=== PATIENT | male | born 1950 | race Caucasian/White ===

== ENCOUNTER → 2016-03-06 | Outpatient (CLI) | payer MEDICARE ==
[2015-08-30 13:30] VITALS: BP 135/73
[~2016-03-06] MED LIST: ASPI81TA2 PO; CRESTOR20 MG PO; FENO48TA16 PO; FURO40TA4 PO; GLIM2TAB2 PO; IBUP200T77 PO; LISI10TA2 PO; METF10002 PO
--- NOTE | 2016-03-06 14:45 | KCIC ---
PROCEDURE Two view chest radiograph. HISTORY Bronchitis. Cough. Mild chest pain. TECHNIQUE Two-view chest radiograph was obtained. COMPARISON April 27, 2015. FINDINGS Left basilar opacity is similar to prior study, may represent some scarring or atelectasis. No definite airspace disease is apparent. There is no pleural effusion. The heart is not enlarged and there is no heart failure. Median sternotomy wires are noted. IMPRESSION Minimal left basilar opacity is similar to prior, may represent scarring or atelectasis. Electronically signed by: Virgilio Snyder MD (Mar 06, 2016 14:44:23)
== END | disposition home or self-care (01) ==
LOC: KCIC 14:23
PROVIDERS: ATTEND Nurse Practitioner Family
DX: J40 Bronchitis, not specified as acute or chronic (principal); R07.9 Chest pain, unspecified; R05 Cough
CPT/HCPCS: 71020

== ENCOUNTER → 2017-03-23 | Outpatient (CLI) | payer MEDICARE | END | disposition home or self-care (01) | LOC: KCIC US 09:15 | DX: K76.0 Fatty (change of) liver, not elsewhere classified (principal); R16.1 Splenomegaly, not elsewhere classified | CPT/HCPCS: 76700 ==

== ENCOUNTER → 2017-10-02 | Outpatient (CLI) | payer MEDICARE ==
[2015-08-30 13:30] VITALS: BP 135/73
[~2017-10-02] MED LIST changes: +ASPI-630 PO; -ASPI81TA2 PO; -METF10002 PO; +METF10003 PO
--- NOTE | 2017-10-02 15:47 | KCIC ---
EXAM: CT Abdomen without IV contrast CLINICAL HISTORY: Fatty liver renal cysts, follow-up. COMPARISON: Ultrasound 03/23/2017 TECHNIQUE: Helical CT of the abdomen without intravenous contrast. Axial, coronal and sagittal reformatted images were generated. PQRS compliance statement - One or more of the following individualized dose reduction techniques were utilized for this study: 1. Automated exposure control 2. Adjustment of the mA and/or kV according to patient size 3. Use of iterative reconstruction technique FINDINGS: Lack of intravenous contrast limits evaluation of solid organs, vasculature, and lymph nodes. Lower chest: Coronary artery calcifications are seen. Abdomen and Pelvis: Diffuse hepatic steatosis. The liver is not enlarged measuring 16.8 cm in length. Spleen is unremarkable. Gallbladder is partially decompressed. No biliary ductal dilatation. Pancreas and adrenal glands are unremarkable. There is thinning of the superior pole of the right kidney likely from prior renal cortical scarring. Punctate calcification in the right upper pole likely nonobstructing renal calculus. No left renal calculi. No hydronephrosis. Small exophytic lesion measures 1.1 cm of inferior pole the left kidney, likely corresponding to the cyst seen on prior CT, only partially profiled. Trace fat-containing periumbilical hernia. The peritoneal cavity is is not entirely included in the [id number]-ca-[id number]. No abdominal ascites. No abdominal lymphadenopathy. Bones: Visualized osseous structures are unremarkable. IMPRESSION: 1. Diffuse hepatic hypodensity - hepatic steatosis. 2. Small exophytic left lower pole cystic lesion is seen, not well delineated on today's exam. Electronically signed by: Jose F Tran MD (10/02/2017 3:44 PM) [id number]
== END | disposition home or self-care (01) ==
LOC: KCIC CT 13:03
PROVIDERS: ATTEND Family Medicine
DX: N28.1 Cyst of kidney, acquired (principal); K76.0 Fatty (change of) liver, not elsewhere classified; I25.10 Atherosclerotic heart disease of native coronary artery without angina pectoris; Z95.1 Presence of aortocoronary bypass graft
CPT/HCPCS: 74150

== ENCOUNTER → 2019-07-20 | Outpatient (CLI) | payer MEDICARE ==
[2015-08-30 13:30] VITALS: BP 135/73
[~2019-07-20] MED LIST changes: -GLIM2TAB2 PO; +GLIM2TAB7 PO; -METF10003 PO; +METF10007 PO
--- NOTE | 2019-07-20 13:32 | CARD ---
MR#: [id number] Date of Study: 07/20/2019 Ordering Physician: FERDINAND HAMMER, Referring Physician: FERDINAND HAMMER, Tech: Kadie Zhao [facility] APPROVED REPORT EXAM: Two-dimensional and M-mode echocardiogram with Doppler and color Doppler. Other Information Quality : Fair INDICATION Cardiac Disease: CAD Hx: CABG 2D DIMENSIONS RVDd2.7 (2.9-3.5cm)Left Atrium(2D)3.8 (1.6-4.0cm) IVSd0.8 (0.7-1.1cm)Aortic Root(2D)3.2 (2.0-3.7cm) LVDd4.6 (3.9-5.9cm)LVOT Diameter2.3 (1.8-2.4cm) PWd0.9 (0.7-1.1cm)LVDs2.9 (2.5-4.0cm) FS (%) 37.2 %SV67.1 ml Aortic Valve AoV Peak Shahriar.123.9cm/sAoV VTI24.0cm AO Peak GR.6.1mmHgLVOT Peak Shahriar.122.5cm/s LVOT VTI 25.91cmAO Mean GR.3mmHg ADDI (VMAX)4.18jq4EOV (VTI)4.65cm2 Mitral Valve MV E Bsuqztnd56.8cm/sMV DECEL DSON049rc MV A Zwbqxqax15.2cm/sMV YRT19ja E/A Ratio1.2MVA (PHT)3.81cm2 Tricuspid Valve TR P. Dbixevje879kk/sRAP MNHQGZDA4wiTj TR Peak Gr.71oqIxOIMC80raHs LEFT VENTRICLE The left ventricle is normal size. There is normal left ventricular wall thickness. The left ventricu lar systolic function is normal and the ejection fraction is within normal range. The Ejection Fracti on is 55-60%. Septal motion consistent with conduction abnormality. The left ventricular diastolic fu nction and filling is normal for age. RIGHT VENTRICLE The right ventricle is normal size. The right ventricular systolic function is normal. ATRIA The left atrium size is normal. The right atrium size is normal. The interatrial septum is intact wit h no evidence for an atrial septal defect or patent foramen ovale as noted on 2-D or Doppler imaging. AORTIC VALVE The aortic valve is calcified but opens well. Doppler and Color Flow revealed no significant aortic r egurgitation. There is no significant aortic valvular stenosis. MITRAL VALVE The mitral valve is calcified but opens well. There is no evidence of mitral valve prolapse. There is no mitral valve stenosis. Doppler and Color-flow revealed trace to mild mitral regurgitation. TRICUSPID VALVE The tricuspid valve is normal in structure and function. Doppler and Color Flow revealed trace tricus pid regurgitation. The PA pressure was estimated at 29 mmHg. There is no tricuspid valve stenosis. PULMONIC VALVE The pulmonic valve is not well visualized. Doppler and Color Flow revealed mild pulmonic valvular reg urgitation. There is no pulmonic valvular stenosis. GREAT VESSELS The aortic root is normal in size. The ascending aorta is mildly dilated at 3.8 cm. The IVC was not v isualized. PERICARDIAL EFFUSION There is no evidence of significant pericardial effusion. Critical Notification Critical Value: No <Conclusion> The left ventricle is normal size. The left ventricular systolic function is normal and the ejection fraction is within normal range. The Ejection Fraction is 55-60%. Doppler and Color Flow revealed no significant aortic regurgitation. There is no significant aortic valvular stenosis. Doppler and Color-flow revealed trace to mild mitral regurgitation. Doppler and Color Flow revealed trace tricuspid regurgitation. The PA pressure was estimated at 29 mmHg. The ascending aorta is mildly dilated at 3.8 cm. Signed by : Reji Merritt MD Electronically Approved : 07/20/2019 13:32:04
== END | disposition home or self-care (01) ==
LOC: ECHO 10:30
PROVIDERS: ATTEND Internal Medicine Cardiovascular Disease
DX: I08.8 Other rheumatic multiple valve diseases (principal); I25.10 Atherosclerotic heart disease of native coronary artery without angina pectoris
CPT/HCPCS: 93306

== ENCOUNTER → 2019-08-09 | Outpatient (CLI) | payer MEDICARE ==
[2015-08-30 13:30] VITALS: BP 135/73
--- NOTE | 2019-08-09 14:57 | KCIC ---
PA CHEST AND LEFT RIB SERIES Clinical Indication: RIGHT POSTERIOR CHEST WALL PAIN / Spl. Instructions: Pain 3-4 months, pain under scapula. / History: Comparison: Two-view chest March 06, 2016. Findings: CABG changes. The cardiac size is normal. Pulmonary vasculature is normal. Minimal scarring in the left lung base. The lungs are otherwise clear. No pleural effusion or pneumothorax is seen. There is no acute displaced rib fracture. A nondisplaced or subtle rib fracture could be obscured. IMPRESSION: 1. No acute cardiopulmonary process. 2. No acute displaced rib fracture. Electronically signed by: Stevan Montgomery MD (08/09/2019 2:54 PM) [id number]
== END | disposition home or self-care (01) ==
LOC: KCIC 08:24
PROVIDERS: ATTEND Family Medicine
DX: R07.89 Other chest pain (principal)
CPT/HCPCS: 71101

== ENCOUNTER 2020-03-16 20:43 | Inpatient (IN) | payer MEDICARE ==
[~2020-03-16] VITALS: Ht 172.7 cm; Wt 118.2 kg
[~2020-03-16 20:43] MED LIST changes: -ACET-1797 PO; -AMLO-187 PO; -FENO54TA PO; -GLIP10TA13 PO; -INSU100I13 SQ; -SIME80TA14 PO
--- NOTE | 2020-03-16 21:01 | PHYS DOC ---
General Adult EDM: Chief Complaint: OTHER COMPLAINTS HPI: HPI: Patient is a 69 year old male who presents with nasal congestion, headache, fatigue, sore throat, nausea, remittent shortness of breath, vomiting and abdominal epigastric pain for the last 5 days. Patient rates his sharp abdominal pain at an 8 out of 10. Patient had a CT abdomen pelvis done today that showed groundglass opacities in lower lobes of lungs, and gas-filled stomach but otherwise unremarkable. Patient states that he will belch often and then feel better. He states it is as if his stomach blows up and gets hard and bloated and then he belches and feels better. Patient has a history of diabetes and hypertension. Patient denies chest pain, dizziness, syncope, diarrhea, focal weakness, numbness or tingling, vision changes. Review of Systems: Review of Systems: Constitutional: Denies fever or chills. [] Eyes: Denies change in visual acuity. [] HENT: + nasal congestion or +sore throat. [] Respiratory: Denies cough. + shortness of breath. [] Cardiovascular: Denies chest pain or edema. [] GI: + abdominal pain, +nausea, +vomiting, denies bloody stools or diarrhea. [] : Denies dysuria. [] Musculoskeletal: Denies back pain or joint pain. [] Integument: Denies rash. [] Neurologic: + headache, denies focal weakness or sensory changes. [] Endocrine: Denies polyuria or polydipsia. [] Lymphatic: Denies swollen glands. [] Psychiatric: Denies depression or anxiety. [] Heart Score: HEART Score for Chest Pain: HEART Score for Chest Pain Response (Comments) Value History Slighlty/Non-Suspicious 0 ECG Normal 0 Age > 65 2 Risk Factors 1 or 2 Risk Factors 1 Troponin < Normal Limit 0 Total 3 Risk Factors: Risk Factors: DM, Current or recent (<one month) smoker, HTN, HLP, family history of CAD, obesity. Risk Scores: Score 0 - 3: 2.5% MACE over next 6 weeks - Discharge Home Score 4 - 6: 20.3% MACE over next 6 weeks - Admit for Clinical Observation Score 7 - 10: 72.7% MACE over next 6 weeks - Early Invasive Strategies Allergies: Allergies: Allergies Coded Allergies Type Severity Reaction Last Updated Verified No Known Drug Allergies 08/30/15 No Physical Exam: PE: Constitutional: Well developed, well nourished, no acute distress, non-toxic appearance. [] HENT: Normocephalic, atraumatic, bilateral external ears normal, oropharynx moist, no oral exudates, nose normal. [] Eyes: PERRLA, EOMI, conjunctiva normal, no discharge. [] Neck: Normal range of motion, no tenderness, supple, no stridor. [] Cardiovascular:Heart rate regular rhythm, no murmur [] Lungs & Thorax: Bilateral breath sounds clear to auscultation [] Abdomen: Bowel sounds normal, soft, epigastric tenderness, no masses, no pulsatile masses. [] Skin: Warm, dry, no erythema, no rash. [] Back: No tenderness, no CVA tenderness. [] Extremities: No tenderness, no cyanosis, no clubbing, ROM intact, no edema. [] Neurologic: Alert and oriented X 3, normal motor function, normal sensory function, no focal deficits noted. [] Psychologic: Affect normal, judgement normal, mood normal. [] EKG: EK and read by Dr Kincaid as Sinus Rhythm and no STEMI Radiology/Procedures: Radiology/Procedures: [] Impression: [facility] [address] [place], [place] [id number] IMAGING REPORT Signed PATIENT: ERVIN GALE ACCOUNT: [id number] : 1950 LOCATION: US AGE: 69 SEX: M EXAM STATUS: REG CLI ORD. PHYSICIAN: AXEL PARKS MD REASON: SEVERE ABD. PAIN, PLEASE CALL RESULTS TO DR. PARKS [phone] PROCEDURE: CT ABDOMEN PELVIS WO CONTRAST EXAM: CT Abdomen and Pelvis without IV contrast INDICATION: Reason: SEVERE ABD. PAIN, PLEASE CALL RESULTS TO DR. PARKS [phone] / [facility]. Instructions: / History: TECHNIQUE: Multi-detector row CT images were acquired from the lung bases through the abdomen and pelvis without the use of IV contrast. Sagittal and coronal images were acquired from the transaxial data. All CT scans performed at this facility utilize dose optimization techniques as appropriate to the exam, including the following: Automated exposure control and adjustment of the mA and/or KV according to patient size (this includes techniques or standardized protocols for targeted exams where dose is indication/reason for exam). ORAL CONTRAST: None COMPARISON: 10/02/[address] FINDINGS: The absence of IV contrast limits evaluation of soft tissue pathology. LOWER CHEST: Prior CABG. Patchy peripheral groundglass densities are nonspecific and could reflect the sequelae of current or previous atypical infection. LIVER: Unremarkable BILIARY SYSTEM: Gallbladder is unremarkable. Bile ducts are not dilated. PANCREAS: Unremarkable SPLEEN: Unremarkable ADRENALS: Unremarkable KIDNEYS & URETERS: Similar volume loss in the right kidney, a nonobstructing right nephrolithiasis. Left kidney shows similar small exophytic lesions with mild perirenal soft tissue stranding that is nonspecific, possible sequelae of chronic kidney disease. No hydronephrosis or ureteral stones. BLADDER: Unremarkable REPRODUCTIVE ORGANS: Postoperative changes from previous prostatectomy. GASTROINTESTINAL: The stomach is distended with gas but otherwise unremarkable. The small bowel, and colon are unremarkable. The appendix is normal. MESENTERY/PERITONEUM/RETROPERITONEUM: Surgical clips in the bilateral pelvic sidewalls are compatible with previous deepak dissection. No fluid collection, mass or adenopathy. No free air. No ascites. VASCULAR: Scattered aortic calcifications but no evidence of an aneurysm. LYMPH NODES: No adenopathy OSSEOUS & SOFT TISSUES: Unremarkable IMPRESSION: 1. No acute pathology in the abdomen or pelvis status post previous prostatectomy and bilateral pelvic deepak dissection. 2. Nonspecific patchy lower lobe peripheral groundglass opacities at could reflect sequelae of atypical infection. Abdominal findings discussed with Dr. Axel Parks by telephone at 5:12 PM on 03/16/2020 Electronically signed by: Meli Cortes MD (03/16/2020 5:21 PM) [id number] DICTATED and SIGNED BY: MELI CORTES MD DATE: 03/16/20 [id number] [facility] [address] [place], [place] [id number] IMAGING REPORT Signed PATIENT: ERVIN GALE ACCOUNT: [id number] : 1950 LOCATION: ER AGE: 69 SEX: M EXAM STATUS: REG ER ORD. PHYSICIAN: ALEKSANDAR CARRIZALES APRN REASON: SOA PROCEDURE: PORTABLE CHEST 1V INDICATION: Reason: SOA / Spl. Instructions: / History: COMPARISON: July 2019 FINDINGS: Single view of chest obtained. Poststernotomy changes. Minimal interstitial prominence similar to prior. No definite new region of airspace consolidation. IMPRESSION: * Similar exam compared to prior without a definite new region of focal airspace consolidation. Electronically signed by: Riley Ocasio MD (03/16/2020 9:50 PM) [id number] DICTATED and SIGNED BY: RILEY OCASIO MD DATE: 03/16/20 [id number] Course & Med Decision Making: Course & Med Decision Making Pertinent Labs and Imaging studies reviewed. (See chart for details) COVID-19 CRITERIA: The patient was evaluated during the global COVID-19 pandemic, and that diagnosis was suspected/considered upon their initial presentation. Their evaluation, treatment and testing was consistent with current guidelines for patients who present with complaints or symptoms that may be related to COVID-19. See HPI. Alert and oriented x4. Speaks in full complete sentences. Skin pink warm and dry. Vital signs are within normal limits. Patient is given simethicone. I have attached the CT from today to the chart. Patient is very uncomfortable. Patient is having abdominal pain and clutching his left abdomen he starts throwing PVCs. Due to patient being so uncomfortable and medications not helping patient will be admitted for intractable abdominal pain and have a GI consultation. Patient is wanting to be admitted due to pain. I have spoken to Dr Kincaid concerning this patient and the care plan. [] Nichole Disclaimer: Nichole Disclaimer: This electronic medical record was generated, in whole or in part, using a voice recognition dictation system. COVID-19 Patient Risks: Age 65 or older: Yes Sign of co-morbidity: Yes Exp to person + for COVID: No Exp to PUI: No Travel from affected area: No Lower respiratory symptoms: Yes Fever: No Other: Yes (HEADACHE, NAUSEA, ABD PAIN) PPE Use: Full PPE with N95 mask or PAPR: Yes Departure Departure Impression: Primary Impression: Intractable abdominal pain Additional Impression: Person under investigation for COVID-19 Disposition: 01 DC HOME SELF CARE/HOMELESS Condition: STABLE Referrals: GENEVA SHEETS MD (PCP) ALEKSANDAR CARRIZALES APRN Mar 16, 2020 21:01
[2020-03-16] MEDS ORDERED: SIMETHICONE 80 MG TAB.CHEW PO PRN (21:15)
--- NOTE | 2020-03-16 21:52 | RAD ---
INDICATION: Reason: SOA / Spl. Instructions: / History: COMPARISON: July 2019 FINDINGS: Single view of chest obtained. Poststernotomy changes. Minimal interstitial prominence similar to prior. No definite new region of a irspace consolidation. IMPRESSION: * Similar exam compared to prior without a definite new region of focal airspace consolidation. Electronically signed by: Riky Ocasio MD (03/16/2020 9:50 PM) [id number]
[2020-03-16] MEDS ORDERED: fentaNYL PF VIAL 100 MCG/2 ML VIAL IVP ONE (22:00)
[2020-03-16 22:29] LABS: BASO # 0.1 x10^3/uL (0.0-0.2); BASO % 1 % (0-3); EOS # 0.4 x10^3/uL (0.0-0.7); EOS % 5 % (0-3); HEMATOCRIT 38.6 % (39.0-53.0); HEMOGLOBIN 13.3 g/dL (13.0-17.5); LYMPH # 2.2 x10^3/uL (1.0-4.8); LYMPH % 29 % (24-48); MEAN CORPUSCULAR HEMOGLOBIN 31 pg (25-35); MEAN CORPUSCULAR HGB CONC 35 g/dL (31-37); MEAN CORPUSCULAR VOLUME 89 fL (79-100); MONO # 0.7 x10^3/uL (0.0-1.1); MONO % 9 % (0-9); NEUT # 4.3 x10^3/uL (1.8-7.7); NEUT % 57 % (31-73); PLATELET COUNT 140 x10^3/uL (140-400); RED BLOOD COUNT 4.35 x10^6/uL (4.30-5.70); RED CELL DISTRIBUTION WIDTH 12.1 % (11.5-14.5); WHITE BLOOD COUNT 7.6 x10^3/uL (4.0-11.0)
[2020-03-16 22:32] LABS: BILIRUBIN,URINE NEGATIVE (NEG); CLARITY,URINE CLEAR; COLOR,URINE YELLOW; NITRITE,URINE NEGATIVE (NEG); PROTEIN,URINE 30 mg/dL (NEG-TRACE)
[2020-03-16 22:39] LABS: BACTERIA,URINE 0 /HPF (0-FEW); RBC,URINE OCC /HPF (0-2); WBC,URINE 0 /HPF (0-4)
[2020-03-16 22:41] LABS: CALCIUM 10.8 mg/dL (8.5-10.1); GFR 33.4; POTASSIUM 4.1 mmol/L (3.5-5.1)
[2020-03-16 22:47] LABS: ALBUMIN 3.7 g/dL (3.4-5.0); TOTAL BILIRUBIN 0.7 mg/dL (0.2-1.0); TOTAL PROTEIN 7.3 g/dL (6.4-8.2)
[2020-03-16] MEDS ORDERED: fentaNYL PF VIAL 100 MCG/2 ML VIAL IV PRN (23:15)
[2020-03-16] MEDS ORDERED: IV NORMAL SALINE 500ML BAG 500 ML IV ONE (23:15)
[2020-03-16] MEDS ORDERED: ONDANSETRON PF 4 MG/2 ML VIAL. IV PRN (23:15)
[2020-03-16] MEDS ORDERED: FAMOTIDINE 20 MG/2 ML VIAL IVP ONE (23:15)
[2020-03-16] MEDS ORDERED: METOCLOPRAMIDE HCL 10 MG/2 ML VIAL. IVP ONE (23:15)
[2020-03-17 01:00] VITALS: BP 164/82
[2020-03-17] MEDS ORDERED: diphenhydrAMINE HCL 25 MG CAPSULE PO PRN (04:30)
[2020-03-17] MEDS ORDERED: ACETAMINOPHEN 500 MG TABLET PO PRN (04:30)
[2020-03-17] MEDS ORDERED: FENO54TA PO (05:09)
[2020-03-17] MEDS ORDERED: INSU100I13 SQ (05:09)
[2020-03-17] MEDS ORDERED: AMLO-187 PO (05:09)
[2020-03-17] MEDS ORDERED: ACET-1797 PO (05:11)
[2020-03-17] MEDS ORDERED: GLIP10TA13 PO (05:11)
[2020-03-17 07:00] VITALS: BP 170/88
[2020-03-17] MEDS ORDERED: SIMETHICONE 80 MG TAB.CHEW PO PRN (08:15)
--- NOTE | 2020-03-17 08:48 | RAD ---
Three-view acute abdominal series. HISTORY: Abdominal distention 3 views were taken for an acute abdominal series. Heart is normal in size with evidence of prior bypa ss. There is minimal density at the left costophrenic angle from atelectasis or scarring. There are n o other infiltrates. There is no definite effusion. Supine and upright views were taken of the abdome n. There is no definite free air on this semiupright portable view which is limited. There is no lawrence l obstruction. There is no significant bowel distention. Supine portable views were also taken of the abdomen. Portable technique and patient size limits evaluation. Patient's had previous surgery in th e pelvis. IMPRESSION: 1. No bowel obstruction or significant bowel distention in the abdomen. 2. Scarring or atelectasis at the left costophrenic angle without other acute infiltrates. Electronically signed by: Robert Muller MD (03/17/2020 8:45 AM) [facility]
[2020-03-17 09:05] LABS: BASO % 1 % (0-3); EOS # 0.3 x10^3/uL (0.0-0.7); EOS % 4 % (0-3); HEMATOCRIT 39.3 % (39.0-53.0); HEMOGLOBIN 13.6 g/dL (13.0-17.5); LYMPH # 1.8 x10^3/uL (1.0-4.8); LYMPH % 26 % (24-48); MEAN CORPUSCULAR HEMOGLOBIN 31 pg (25-35); MEAN CORPUSCULAR HGB CONC 35 g/dL (31-37); MEAN CORPUSCULAR VOLUME 89 fL (79-100); MONO # 0.5 x10^3/uL (0.0-1.1); MONO % 7 % (0-9); NEUT # 4.5 x10^3/uL (1.8-7.7); NEUT % 63 % (31-73); PLATELET COUNT 128 x10^3/uL (140-400); RED BLOOD COUNT 4.41 x10^6/uL (4.30-5.70); RED CELL DISTRIBUTION WIDTH 12.5 % (11.5-14.5); WHITE BLOOD COUNT 7.1 x10^3/uL (4.0-11.0)
--- NOTE | 2020-03-17 09:09 | PDOC1 ---
History and Physical Date of Admission Date of Admission 03/17/2020 Identification/Chief Complaint Chief Complaint My stomach is bloated Source Source: Chart review, Patient History of Present Illness History of Present Illness Patient is a 69-year-old gentleman with past medical history of hypertension diabetes which seems to be poorly controlled who was in his usual state of health until approximately 1 day prior to his admission when he started complaining of abdominal discomfort. This is generalized sharp in nature sensation of bloating that he rates at a 8 out of 10 intensity and the worst moments. Intermittent no dietary transgressions no recent infections and no travels outside this area have been reported. The patient denies any contact with people infected with COVID-19. The patient denies any fever chills no shortness of breath no cough or sputum production no pleurisy. The patient denies nausea vomiting diarrhea. He describes a similar episode years ago and he was diagnosed with irritable bowel syndrome, the patient denies urinary symptoms no CVA tenderness. He was seen in the outpatient setting by his primary care physician imaging studies have been reviewed and there does not seem to be an acute process evident on CAT scan. There is a comment of nonspecific patchy lower lobe peripheral groundglass opacities that could reflect sequela of atypical infection but otherwise no acute pathology in the abdomen or pelvis was reported. Patient denies early satiety, he does not remember the value of his last hemoglobin A1c We were asked to admit the patient for symptoms control and GI consultation. At the time my evaluation the patient does not exhibit acute distress he does seem bloated and describes the pain as when unable to pass gas. He has had bowel movements throughout the day yesterday and last one notes a long ago prior to my interview. He had a colonoscopy approximately 3 years ago with normal findings. No records are available for review of the procedure. Plan of care has been explained in detail and he is hoping to be discharged later in the day so he can watch to game tomorrow. Reassurance has been provided plan of care explained in detail and all of his concerns addressed to the best of my abilities Past Medical History Cardiovascular: HTN, Hyperlipidemia Endocrine: Diabetes Past Surgical History Past Surgical History: No pertinent history Family History Family History: No Significant Social History Smoke: No ALCOHOL: none Drugs: None Current Problem List Problem List Problems Medical Problems: (1) Intractable abdominal pain Status: Acute (2) Person under investigation for COVID-19 Status: Acute Current Medications Current Medications Current Medications Medications (Trade) Dose Ordered Sig/Travis Start Time Stop Time Status Last Admin Dose Admin Acetaminophen (Tylenol) 500 mg PRN Q6HRS PRN 03/17/20 04:30 Diphenhydramine HCl (Benadryl) 50 mg PRN QHS PRN 03/17/20 04:30 Famotidine (Pepcid Vial) 20 mg 1X ONCE 03/16/20 23:15 03/16/20 23:16 DC 03/16/20 23:39 20 MG Fentanyl Citrate (Fentanyl 2ml Vial) 50 mcg PRN Q3HRS PRN 03/16/20 23:15 03/17/20 23:14 03/16/20 23:41 50 MCG Metoclopramide HCl (Reglan Vial) 10 mg 1X ONCE 03/16/20 23:15 03/16/20 23:16 DC 03/16/20 23:40 10 MG Ondansetron HCl (Zofran) 4 mg PRN Q8HRS PRN 03/16/20 23:15 03/17/20 23:14 Simethicone (Gas-X) 80 mg PRN AFTMEALHC PRN 03/17/20 08:15 Sodium Chloride 500 ml @ 500 mls/hr 1X ONCE 03/16/20 23:15 03/17/20 00:14 DC 03/16/20 23:36 500 MLS/HR Allergies Allergies Allergies Coded Allergies Type Severity Reaction Last Updated Verified No Known Drug Allergies 08/30/15 No ROS Review of System CONSTITUTIONAL: No fever or chills EYES: No recent changes SKIN: No rash or itching CARDIOVASCULAR: No chest pain, syncope, palpitations, or edema RESPIRATORY: No SOB or cough GASTROINTESTINAL: No nausea, vomiting or abdominal pain NEUROLOGICAL: No headaches or weakness ENDOCRINE: No cold or heat intolerance GENITOURINARY: No urgency or frequency of urination MUSCULOSKELETAL: No back pain or joint pain LYMPHATICS: No enlarged lymph nodes PSYCHIATRIC: No anxiety or depression Physical Exam Physical Exam GEN.: No apparent distress. Alert and oriented. HEENT: Head is normocephalic, atraumatic NECK: Supple. LUNGS: Clear to auscultation. HEART: RRR, S1, S2 present. Peripheral pulses intact ABDOMEN: Soft, nontender. Positive bowel sounds. EXTREMITIES: Without any cyanosis. NEUROLOGIC: Normal speech, normal tone PSYCHIATRIC: Normal affect, normal mood. SKIN: No ulcerations Vitals Vitals Vital Signs Date Time Temp Pulse Resp B/P (MAP) Pulse Ox O2 Delivery O2 Flow Rate FiO2 03/17/20 07:00 96.8 89 170/88 (115) 97 Room Air 96.8 03/17/20 01:00 20 Labs Labs Laboratory Tests Test 03/16/20 22:10 03/16/20 22:20 03/17/20 07:37 White Blood Count 7.6 x10^3/uL (4.0-11.0) Red Blood Count 4.35 x10^6/uL (4.30-5.70) Hemoglobin 13.3 g/dL (13.0-17.5) Hematocrit 38.6 % (39.0-53.0) Mean Corpuscular Volume 89 fL (79-100) Mean Corpuscular Hemoglobin 31 pg (25-35) Mean Corpuscular Hemoglobin Concent 35 g/dL (31-37) Red Cell Distribution Width 12.1 % (11.5-14.5) Platelet Count 140 x10^3/uL (140-400) Neutrophils (%) (Auto) 57 % (31-73) Lymphocytes (%) (Auto) 29 % (24-48) Monocytes (%) (Auto) 9 % (0-9) Eosinophils (%) (Auto) 5 % (0-3) Basophils (%) (Auto) 1 % (0-3) Neutrophils # (Auto) 4.3 x10^3/uL (1.8-7.7) Lymphocytes # (Auto) 2.2 x10^3/uL (1.0-4.8) Monocytes # (Auto) 0.7 x10^3/uL (0.0-1.1) Eosinophils # (Auto) 0.4 x10^3/uL (0.0-0.7) Basophils # (Auto) 0.1 x10^3/uL (0.0-0.2) Sodium Level 138 mmol/L (136-145) Potassium Level 4.1 mmol/L (3.5-5.1) Chloride Level 102 mmol/L (98-107) Carbon Dioxide Level 27 mmol/L (21-32) Anion Gap 9 (6-14) Blood Urea Nitrogen 29 mg/dL (8-26) Creatinine 2.0 mg/dL (0.7-1.3) Estimated GFR (Cockcroft-Gault) 33.4 BUN/Creatinine Ratio 15 (6-20) Glucose Level 323 mg/dL (70-99) Calcium Level 10.8 mg/dL (8.5-10.1) Total Bilirubin 0.7 mg/dL (0.2-1.0) Aspartate Amino Transf (AST/SGOT) 26 U/L (15-37) Alanine Aminotransferase (ALT/SGPT) 30 U/L (16-63) Alkaline Phosphatase 68 U/L (46-116) Troponin I Quantitative < 0.017 ng/mL (0.000-0.055) Total Protein 7.3 g/dL (6.4-8.2) Albumin 3.7 g/dL (3.4-5.0) Albumin/Globulin Ratio 1.0 (1.0-1.7) Lipase 200 U/L (73-393) Urine Collection Type Void Urine Color Yellow Urine Clarity Clear Urine pH 7.0 (<5.0-8.0) Urine Specific [place] 1.025 (1.000-1.030) Urine Protein 30 mg/dL (NEG-TRACE) Urine Glucose (UA) >=1000 mg/dL (NEG) Urine Ketones (Stick) Negative mg/dL (NEG) Urine Blood Negative (NEG) Urine Nitrite Negative (NEG) Urine Bilirubin Negative (NEG) Urine Urobilinogen Dipstick 1.0 mg/dL (0.2 mg/dL) Urine Leukocyte Esterase Negative (NEG) Urine RBC Occ /HPF (0-2) Urine WBC 0 /HPF (0-4) Urine Squamous Epithelial Cells None /LPF Urine Bacteria 0 /HPF (0-FEW) Glucose (Fingerstick) 237 mg/dL (70-99) Laboratory Tests Test 03/16/20 22:10 03/16/20 22:20 03/17/20 07:37 White Blood Count 7.6 x10^3/uL (4.0-11.0) Red Blood Count 4.35 x10^6/uL (4.30-5.70) Hemoglobin 13.3 g/dL (13.0-17.5) Hematocrit 38.6 % (39.0-53.0) Mean Corpuscular Volume 89 fL (79-100) Mean Corpuscular Hemoglobin 31 pg (25-35) Mean Corpuscular Hemoglobin Concent 35 g/dL (31-37) Red Cell Distribution Width 12.1 % (11.5-14.5) Platelet Count 140 x10^3/uL (140-400) Neutrophils (%) (Auto) 57 % (31-73) Lymphocytes (%) (Auto) 29 % (24-48) Monocytes (%) (Auto) 9 % (0-9) Eosinophils (%) (Auto) 5 % (0-3) Basophils (%) (Auto) 1 % (0-3) Neutrophils # (Auto) 4.3 x10^3/uL (1.8-7.7) Lymphocytes # (Auto) 2.2 x10^3/uL (1.0-4.8) Monocytes # (Auto) 0.7 x10^3/uL (0.0-1.1) Eosinophils # (Auto) 0.4 x10^3/uL (0.0-0.7) Basophils # (Auto) 0.1 x10^3/uL (0.0-0.2) Sodium Level 138 mmol/L (136-145) Potassium Level 4.1 mmol/L (3.5-5.1) Chloride Level 102 mmol/L (98-107) Carbon Dioxide Level 27 mmol/L (21-32) Anion Gap 9 (6-14) Blood Urea Nitrogen 29 mg/dL (8-26) Creatinine 2.0 mg/dL (0.7-1.3) Estimated GFR (Cockcroft-Gault) 33.4 BUN/Creatinine Ratio 15 (6-20) Glucose Level 323 mg/dL (70-99) Calcium Level 10.8 mg/dL (8.5-10.1) Total Bilirubin 0.7 mg/dL (0.2-1.0) Aspartate Amino Transf (AST/SGOT) 26 U/L (15-37) Alanine Aminotransferase (ALT/SGPT) 30 U/L (16-63) Alkaline Phosphatase 68 U/L (46-116) Troponin I Quantitative < 0.017 ng/mL (0.000-0.055) Total Protein 7.3 g/dL (6.4-8.2) Albumin 3.7 g/dL (3.4-5.0) Albumin/Globulin Ratio 1.0 (1.0-1.7) Lipase 200 U/L (73-393) Urine Collection Type Void Urine Color Yellow Urine Clarity Clear Urine pH 7.0 (<5.0-8.0) Urine Specific [place] 1.025 (1.000-1.030) Urine Protein 30 mg/dL (NEG-TRACE) Urine Glucose (UA) >=1000 mg/dL (NEG) Urine Ketones (Stick) Negative mg/dL (NEG) Urine Blood Negative (NEG) Urine Nitrite Negative (NEG) Urine Bilirubin Negative (NEG) Urine Urobilinogen Dipstick 1.0 mg/dL (0.2 mg/dL) Urine Leukocyte Esterase Negative (NEG) Urine RBC Occ /HPF (0-2) Urine WBC 0 /HPF (0-4) Urine Squamous Epithelial Cells None /LPF Urine Bacteria 0 /HPF (0-FEW) Glucose (Fingerstick) 237 mg/dL (70-99) VTE Prophylaxis Ordered VTE Prophylaxis Devices: Yes VTE Pharmacological Prophylaxi: No Assessment/Plan Assessment/Plan Abdominal pain secondary to most likely gas Uncontrolled diabetes mellitus type 2 History of essential hypertension Dyslipidemia Obesity with a BMI of 39 Gastroparesis? Person under investigation for COVID-19 infection Plan We will order abdominal acute series Simethicone GI consultation Hemoglobin A1c Further recommendations based on the clinical course Await for COVID-19 PCR results Reassess in the a.m. DVT prophylaxis with Lovenox Justifications for Admission Other Justification CLOVER BARBOZA MD Mar 17, 2020 09:09
[2020-03-17] MEDS ORDERED: ELECTROLYTE (NON-ICU) PROTOCOL. MC PRN (09:15)
[2020-03-17] MEDS ORDERED: ZOLPIDEM 5 MG TABLET. PO PRN (09:15)
[2020-03-17] MEDS ORDERED: MAGNESIUM HYDROXIDE 2,400 MG/30 ML ORAL.SUSP. PO PRN (09:15)
[2020-03-17] MEDS ORDERED: ONDANSETRON PF 4 MG/2 ML VIAL. IVP PRN (09:15)
[2020-03-17] MEDS ORDERED: BISACODYL 10 MG SUPP.RECT. PR PRN (09:15)
[2020-03-17] MEDS ORDERED: MORPHINE SULFATE 2 MG/ML VIAL. IV PRN (09:15)
[2020-03-17] MEDS ORDERED: LACTULOSE 20 GM/30 ML SOLUTION. PO PRN (09:15)
[2020-03-17] MEDS ORDERED: ACETAMINOPHEN 325 MG TABLET. PO PRN (09:15)
[2020-03-17] MEDS ORDERED: MAG HYDROX/ALUMINUM HYD/SIMETH 30 ML ORAL.SUSP PO PRN (09:15)
[2020-03-17 09:41] LABS: ALBUMIN 3.6 g/dL (3.4-5.0); ALBUMIN/GLOBULIN RATIO 1.1 (1.0-1.7); C-REACTIVE PROTEIN 2.1 mg/L (0-3.3); CALCIUM 10.4 mg/dL (8.5-10.1); CREATININE 1.9 mg/dL (0.7-1.3); GFR 35.4; POTASSIUM 4.2 mmol/L (3.5-5.1); TOTAL BILIRUBIN 0.9 mg/dL (0.2-1.0)
[2020-03-17] MEDS: SENNOSIDES/DOCUSATE 8.6/50MG TABLET. PO SCH ×2 (10:39→11:00)
[2020-03-17 10:59] VITALS: BP 146/75
[2020-03-17 15:17] VITALS: BP 157/78
[2020-03-17] MEDS ORDERED: SIME80TA14 PO (15:33)
--- NOTE | 2020-03-17 15:37 | PDOC3 ---
Discharge Summary Visit Information Date of Admission: Mar 17, 2020 Date of Discharge: Mar 17, 2020 Admitting Diagnosis Comment: intractable abdominal pain Final Diagnosis Problems Medical Problems: (1) Intractable abdominal pain Status: Acute (2) Person under investigation for COVID-19 Status: Acute Brief Hospital Course Allergies Allergies Coded Allergies Type Severity Reaction Last Updated Verified No Known Drug Allergies 08/30/15 No Vital Signs Vital Signs Date Time Temp Pulse Resp B/P (MAP) Pulse Ox O2 Delivery O2 Flow Rate FiO2 03/17/20 15:17 97.2 95 157/78 (104) 96 Room Air 97.2 03/17/20 10:59 18 Lab Results Laboratory Tests Test 03/16/20 22:10 03/16/20 22:20 03/17/20 07:37 03/17/20 08:42 White Blood Count 7.6 x10^3/uL (4.0-11.0) 7.1 x10^3/uL (4.0-11.0) Red Blood Count 4.35 x10^6/uL (4.30-5.70) 4.41 x10^6/uL (4.30-5.70) Hemoglobin 13.3 g/dL (13.0-17.5) 13.6 g/dL (13.0-17.5) Hematocrit 38.6 % (39.0-53.0) 39.3 % (39.0-53.0) Mean Corpuscular Volume 89 fL (79-100) 89 fL (79-100) Mean Corpuscular Hemoglobin 31 pg (25-35) 31 pg (25-35) Mean Corpuscular Hemoglobin Concent 35 g/dL (31-37) 35 g/dL (31-37) Red Cell Distribution Width 12.1 % (11.5-14.5) 12.5 % (11.5-14.5) Platelet Count 140 x10^3/uL (140-400) 128 x10^3/uL (140-400) Neutrophils (%) (Auto) 57 % (31-73) 63 % (31-73) Lymphocytes (%) (Auto) 29 % (24-48) 26 % (24-48) Monocytes (%) (Auto) 9 % (0-9) 7 % (0-9) Eosinophils (%) (Auto) 5 % (0-3) 4 % (0-3) Basophils (%) (Auto) 1 % (0-3) 1 % (0-3) Neutrophils # (Auto) 4.3 x10^3/uL (1.8-7.7) 4.5 x10^3/uL (1.8-7.7) Lymphocytes # (Auto) 2.2 x10^3/uL (1.0-4.8) 1.8 x10^3/uL (1.0-4.8) Monocytes # (Auto) 0.7 x10^3/uL (0.0-1.1) 0.5 x10^3/uL (0.0-1.1) Eosinophils # (Auto) 0.4 x10^3/uL (0.0-0.7) 0.3 x10^3/uL (0.0-0.7) Basophils # (Auto) 0.1 x10^3/uL (0.0-0.2) 0.0 x10^3/uL (0.0-0.2) Sodium Level 138 mmol/L (136-145) 136 mmol/L (136-145) Potassium Level 4.1 mmol/L (3.5-5.1) 4.2 mmol/L (3.5-5.1) Chloride Level 102 mmol/L (98-107) 102 mmol/L (98-107) Carbon Dioxide Level 27 mmol/L (21-32) 24 mmol/L (21-32) Anion Gap 9 (6-14) 10 (6-14) Blood Urea Nitrogen 29 mg/dL (8-26) 25 mg/dL (8-26) Creatinine 2.0 mg/dL (0.7-1.3) 1.9 mg/dL (0.7-1.3) Estimated GFR (Cockcroft-Gault) 33.4 35.4 BUN/Creatinine Ratio 15 (6-20) 13 (6-20) Glucose Level 323 mg/dL (70-99) 249 mg/dL (70-99) Calcium Level 10.8 mg/dL (8.5-10.1) 10.4 mg/dL (8.5-10.1) Total Bilirubin 0.7 mg/dL (0.2-1.0) 0.9 mg/dL (0.2-1.0) Aspartate Amino Transf (AST/SGOT) 26 U/L (15-37) 28 U/L (15-37) Alanine Aminotransferase (ALT/SGPT) 30 U/L (16-63) 30 U/L (16-63) Alkaline Phosphatase 68 U/L (46-116) 66 U/L (46-116) Troponin I Quantitative < 0.017 ng/mL (0.000-0.055) Total Protein 7.3 g/dL (6.4-8.2) 7.0 g/dL (6.4-8.2) Albumin 3.7 g/dL (3.4-5.0) 3.6 g/dL (3.4-5.0) Albumin/Globulin Ratio 1.0 (1.0-1.7) 1.1 (1.0-1.7) Lipase 200 U/L (73-393) Urine Collection Type Void Urine Color Yellow Urine Clarity Clear Urine pH 7.0 (<5.0-8.0) Urine Specific [place] 1.025 (1.000-1.030) Urine Protein 30 mg/dL (NEG-TRACE) Urine Glucose (UA) >=1000 mg/dL (NEG) Urine Ketones (Stick) Negative mg/dL (NEG) Urine Blood Negative (NEG) Urine Nitrite Negative (NEG) Urine Bilirubin Negative (NEG) Urine Urobilinogen Dipstick 1.0 mg/dL (0.2 mg/dL) Urine Leukocyte Esterase Negative (NEG) Urine RBC Occ /HPF (0-2) Urine WBC 0 /HPF (0-4) Urine Squamous Epithelial Cells None /LPF Urine Bacteria 0 /HPF (0-FEW) Glucose (Fingerstick) 237 mg/dL (70-99) D-Dimer (Radha) 0.47 ug/mlFEU (0.00-0.50) Ferritin 341 ng/mL (26-388) Lactate Dehydrogenase 202 U/L (85-227) C-Reactive Protein, Quantitative 2.1 mg/L (0-3.3) Procalcitonin < 0.10 ng/mL (0.00-0.10) Test 03/17/20 10:44 Glucose (Fingerstick) 229 mg/dL (70-99) Laboratory Tests Test 03/16/20 22:10 03/16/20 22:20 03/17/20 07:37 03/17/20 08:42 White Blood Count 7.6 x10^3/uL (4.0-11.0) 7.1 x10^3/uL (4.0-11.0) Red Blood Count 4.35 x10^6/uL (4.30-5.70) 4.41 x10^6/uL (4.30-5.70) Hemoglobin 13.3 g/dL (13.0-17.5) 13.6 g/dL (13.0-17.5) Hematocrit 38.6 % (39.0-53.0) 39.3 % (39.0-53.0) Mean Corpuscular Volume 89 fL (79-100) 89 fL (79-100) Mean Corpuscular Hemoglobin 31 pg (25-35) 31 pg (25-35) Mean Corpuscular Hemoglobin Concent 35 g/dL (31-37) 35 g/dL (31-37) Red Cell Distribution Width 12.1 % (11.5-14.5) 12.5 % (11.5-14.5) Platelet Count 140 x10^3/uL (140-400) 128 x10^3/uL (140-400) Neutrophils (%) (Auto) 57 % (31-73) 63 % (31-73) Lymphocytes (%) (Auto) 29 % (24-48) 26 % (24-48) Monocytes (%) (Auto) 9 % (0-9) 7 % (0-9) Eosinophils (%) (Auto) 5 % (0-3) 4 % (0-3) Basophils (%) (Auto) 1 % (0-3) 1 % (0-3) Neutrophils # (Auto) 4.3 x10^3/uL (1.8-7.7) 4.5 x10^3/uL (1.8-7.7) Lymphocytes # (Auto) 2.2 x10^3/uL (1.0-4.8) 1.8 x10^3/uL (1.0-4.8) Monocytes # (Auto) 0.7 x10^3/uL (0.0-1.1) 0.5 x10^3/uL (0.0-1.1) Eosinophils # (Auto) 0.4 x10^3/uL (0.0-0.7) 0.3 x10^3/uL (0.0-0.7) Basophils # (Auto) 0.1 x10^3/uL (0.0-0.2) 0.0 x10^3/uL (0.0-0.2) Sodium Level 138 mmol/L (136-145) 136 mmol/L (136-145) Potassium Level 4.1 mmol/L (3.5-5.1) 4.2 mmol/L (3.5-5.1) Chloride Level 102 mmol/L (98-107) 102 mmol/L (98-107) Carbon Dioxide Level 27 mmol/L (21-32) 24 mmol/L (21-32) Anion Gap 9 (6-14) 10 (6-14) Blood Urea Nitrogen 29 mg/dL (8-26) 25 mg/dL (8-26) Creatinine 2.0 mg/dL (0.7-1.3) 1.9 mg/dL (0.7-1.3) Estimated GFR (Cockcroft-Gault) 33.4 35.4 BUN/Creatinine Ratio 15 (6-20) 13 (6-20) Glucose Level 323 mg/dL (70-99) 249 mg/dL (70-99) Calcium Level 10.8 mg/dL (8.5-10.1) 10.4 mg/dL (8.5-10.1) Total Bilirubin 0.7 mg/dL (0.2-1.0) 0.9 mg/dL (0.2-1.0) Aspartate Amino Transf (AST/SGOT) 26 U/L (15-37) 28 U/L (15-37) Alanine Aminotransferase (ALT/SGPT) 30 U/L (16-63) 30 U/L (16-63) Alkaline Phosphatase 68 U/L (46-116) 66 U/L (46-116) Troponin I Quantitative < 0.017 ng/mL (0.000-0.055) Total Protein 7.3 g/dL (6.4-8.2) 7.0 g/dL (6.4-8.2) Albumin 3.7 g/dL (3.4-5.0) 3.6 g/dL (3.4-5.0) Albumin/Globulin Ratio 1.0 (1.0-1.7) 1.1 (1.0-1.7) Lipase 200 U/L (73-393) Urine Collection Type Void Urine Color Yellow Urine Clarity Clear Urine pH 7.0 (<5.0-8.0) Urine Specific [place] 1.025 (1.000-1.030) Urine Protein 30 mg/dL (NEG-TRACE) Urine Glucose (UA) >=1000 mg/dL (NEG) Urine Ketones (Stick) Negative mg/dL (NEG) Urine Blood Negative (NEG) Urine Nitrite Negative (NEG) Urine Bilirubin Negative (NEG) Urine Urobilinogen Dipstick 1.0 mg/dL (0.2 mg/dL) Urine Leukocyte Esterase Negative (NEG) Urine RBC Occ /HPF (0-2) Urine WBC 0 /HPF (0-4) Urine Squamous Epithelial Cells None /LPF Urine Bacteria 0 /HPF (0-FEW) Glucose (Fingerstick) 237 mg/dL (70-99) D-Dimer (Radha) 0.47 ug/mlFEU (0.00-0.50) Ferritin 341 ng/mL (26-388) Lactate Dehydrogenase 202 U/L (85-227) C-Reactive Protein, Quantitative 2.1 mg/L (0-3.3) Procalcitonin < 0.10 ng/mL (0.00-0.10) Test 03/17/20 10:44 Glucose (Fingerstick) 229 mg/dL (70-99) Brief Hospital Course Mr. Talamantes is a 69 old male who presented with abdominal pain and due to a ct of [facility] with groundglass changes he was admitted to our service for investigation of covid 19. Patient did not have ompatible history and all the markers wer negative. he felt improved after a dose of simethicone and requested discharge from the hospital. Signs and symptoms of concern were discussed prior to discharge, if his results fro covid are positive he will be notified, advised to quarintine until he gets results. Discharge Information Condition at Discharge: Improved Follow Up: Weeks Disposition/Orders: D/C to Home Scheduled Amlodipine Besylate (Amlodipine Besylate) 10 Mg Tablet, 10 MG PO DAILY for HTN, (Reported) Entered as Reported by: Pablito Goncalves on 03/17/20508 Last Action: New Order on 03/17/20508 by Pablito Goncalves Aspirin (Aspirin) 81 Mg Tab.chew, 81 MG PO DAILY, (Reported) Entered as Reported by: ANALI PALOMINO on 08/30/15756 Fenofibrate (Fenofibrate) 54 Mg Tablet, 1 TAB PO DAILY for cholesterol, #30 Ref 5 (Reported) Entered as Reported by: Pablito Goncalves on 03/17/20508 Last Action: New Order on 03/17/20508 by Pablito Goncalves Glipizide (Glipizide) 10 Mg Tablet, 2 TAB PO BID for DM, #60 Ref 5 (Reported) Entered as Reported by: Pablito Goncalves on 03/17/20510 Last Action: New Order on 03/17/20510 by Pablito Goncalves Insulin Glargine,Hum.rec.anlog (Lantus Solostar) 100 Unit/1 Ml Insuln.pen, 30 UNIT SQ QHS for DM, #15 Ref 3 (Reported) Entered as Reported by: Pablito Goncalves on 03/17/20508 Last Action: New Order on 03/17/20508 by Pablito Goncalves Lisinopril (Lisinopril) 10 Mg Tablet, 10 MG PO BID for hypertension, #30 Ref 0 (Reported) Entered as Reported by: ANALI PALOMINO on 08/30/15756 Last Action: Edited on 03/17/20508 by Pablito Goncalves Rosuvastatin Calcium (Crestor) 20 Mg Tablet, 20 MG PO HS for FOR CHOLESTEROL, #30 Ref 0 (Reported) Entered as Reported by: ANALI PALOMINO on 08/30/15756 Scheduled PRN Acetaminophen/Diphenhydramine (Acetaminophen-Diphenhyd 500-25) 1 Each Tablet, 2 EACH PO HS PRN for INSOMNIA, (Reported) Entered as Reported by: Pablito Goncalves on 03/17/20510 Last Action: New Order on 03/17/20510 by Pablito Goncalves Furosemide (Furosemide) 40 Mg Tablet, 40 MG PO DAILY PRN for SEE COMMENTS, (Reported) Entered as Reported by: ANALI PALOMINO on 08/30/15756 Simethicone (Simethicone) 80 Mg Tab.chew, 80 MG PO PRN AFTMEALHC PRN for GAS / BLOATING for 5 Days, #20 Prescribed by: CLOVER BARBOZA MD on 03/17/20 1533 Discontinued Medications Fenofibrate Nanocrystallized (Tricor) 48 Mg Tablet, 48 MG PO DAILY, (Reported) Entered as Reported by: ANALI PALOMINO on 08/30/15756 Last Action: Discontinued on 03/17/20508 by Pablito Goncalves Glimepiride (Glimepiride) 2 Mg Tablet, 2 MG PO DAILY, (Reported) Entered as Reported by: ANALI PALOMINO on 08/30/15756 Last Action: Discontinued on 03/17/20508 by Pablito Goncalves Ibuprofen (Ibuprofen) 200 Mg Tablet, 200 MG PO PRN Q6HRS PRN for INFLAMMATION, (Reported) Entered as Reported by: AANLI PALOMINO on 08/30/15756 Last Action: Discontinued on 03/17/20508 by Pablito Goncalves Metformin Hcl (Metformin Hcl) 1,000 Mg Tablet, 1,000 MG PO BID for ANTI- DIABETIC, Ref 0 (Reported) Entered as Reported by: ANALI PALOMINO on 08/30/15756 Last Action: Discontinued on 03/17/20508 by Pablito Goncalves Justicifation of Admission Dx: Justifications for Admission: Justification of Admission Dx: Yes (person under investigation for covid 19) CLOVER BARBOZA MD Mar 17, 2020 15:37
--- NOTE | 2020-03-17 16:26 | NUR ---
Discharge Note: ERVIN GALE Discharge instructions and discharge home medications reviewed with Patient and a copy given. All questions have been answered and understanding verbalized. The following instructions and handouts were given: follow up instructions, debby Sutton discharge information Discontinued lines and drains: 18 guage right AC, tip intact. Patient tolerated well. Patient discharged to home with self care via family.
[2020-03-17] MEDS ORDERED: ENOXAPARIN 40 MG/0.4 ML SYRINGE. SQ SCH (21:00)
[2020-03-18 05:46] LABS: HEMOGLOBIN A1C 10.7 % (4.8-5.6)
--- NOTE | 2020-03-20 04:52 | EKG ---
[facility] [address] [place] [address] Test Date: 2020-03-16 Test Time: 21:23:50 Pat Name: ERVIN GALE Department: Room: 6 Gender: M Accounting Director: : [id number] Requested By: ALEKSANDAR CARRIZALES Order Number: [id number] Reading MD: Kian Phelps Measurements Intervals [place] Rate: 87 P: 152 MD: 174 QRS: 39 QRSD: 84 T: 42 QT: 366 QTc: 446 Interpretive Statements SINUS RHYTHM NORMAL ECG RI6.02 No previous ECG available for comparison Electronically Signed On 03-20-2020 9:52:28 CASHIER WRAPPER by Kian Phelps
== END 2020-03-17 16:03 | disposition home or self-care (01) | DRG 392 ==
LOC: ER 20:43 → 6 SOUTH 23:32 → OBSVTOIN 23:32 → 6 SOUTH 03-17 00:31
PROVIDERS: ADMIT Internal Medicine; ATTEND Internal Medicine
DX: K21.9 Gastro-esophageal reflux disease without esophagitis (principal); E11.65 Type 2 diabetes mellitus with hyperglycemia; E66.9 Obesity, unspecified; E78.5 Hyperlipidemia, unspecified; I10 Essential (primary) hypertension; Z20.822 Contact with and (suspected) exposure to COVID-19; Z68.39 Body mass index [BMI] 39.0-39.9, adult; K58.9 Irritable bowel syndrome, unspecified
CPT/HCPCS: 36415; 71045; 74022; 80053; 81001; 82306; 82728; 82962; 83036; 83615; 83690; 84145; 84484; 85025; 85379; 86140; 93005; 96361; 96366; 96374; 96375; 96376; 99285; G0378; G0379; J2765; J3010; J3490; J7040; U0003; Q0163

== ENCOUNTER → 2020-03-16 | Outpatient (CLI) | payer MEDICARE ==
[2015-08-30 13:30] VITALS: BP 135/73
[~2020-03-16] MED LIST changes: +ACET-1797 PO; +AMLO-187 PO; +FENO54TA PO; +GLIP10TA13 PO; +INSU100I13 SQ; +LISI10TA16 PO; -LISI10TA2 PO; +SIME80TA14 PO
--- NOTE | 2020-03-16 17:23 | RAD ---
EXAM: CT Abdomen and Pelvis without IV contrast INDICATION: Reason: SEVERE ABD. PAIN, PLEASE CALL RESULTS TO DR. PARKS [phone] / Spl. [place] ns: / History: TECHNIQUE: Multi-detector row CT images were acquired from the lung bases through the abdomen and pel vis without the use of IV contrast. Sagittal and coronal images were acquired from the transaxial mohamud a. All CT scans performed at this facility utilize dose optimization techniques as appropriate to the exam, including the following: Automated exposure control and adjustment of the mA and/or KV accordi ng to patient size (this includes techniques or standardized protocols for targeted exams where dose is indication/reason for exam). ORAL CONTRAST: None COMPARISON: 10/02/[address] FINDINGS: The absence of IV contrast limits evaluation of soft tissue pathology. LOWER CHEST: Prior CABG. Patchy peripheral groundglass densities are nonspecific and could reflect th e sequelae of current or previous atypical infection. LIVER: Unremarkable BILIARY SYSTEM: Gallbladder is unremarkable. Bile ducts are not dilated. PANCREAS: Unremarkable SPLEEN: Unremarkable ADRENALS: Unremarkable KIDNEYS & URETERS: Similar volume loss in the right kidney, a nonobstructing right nephrolithiasis. Left kidney shows similar small exophytic lesions with mild perirenal soft tissue stranding that is n onspecific, possible sequelae of chronic kidney disease. No hydronephrosis or ureteral stones. BLADDER: Unremarkable REPRODUCTIVE ORGANS: Postoperative changes from previous prostatectomy. GASTROINTESTINAL: The stomach is distended with gas but otherwise unremarkable. The small bowel, and colon are unremarkable. The appendix is normal. MESENTERY/PERITONEUM/RETROPERITONEUM: Surgical clips in the bilateral pelvic sidewalls are compatible with previous deepak dissection. No fluid collection, mass or adenopathy. No free air. No ascites. VASCULAR: Scattered aortic calcifications but no evidence of an aneurysm. LYMPH NODES: No adenopathy OSSEOUS & SOFT TISSUES: Unremarkable IMPRESSION: 1. No acute pathology in the abdomen or pelvis status post previous prostatectomy and bilateral pelvi c deepak dissection. 2. Nonspecific patchy lower lobe peripheral groundglass opacities at could reflect sequelae of atypic al infection. Abdominal findings discussed with Dr. Axel Parks by telephone at 5:12 PM on 03/16/2020 Electronically signed by: Олег Cortes MD (03/16/2020 5:21 PM) [id number]
== END ==
LOC: US 15:42
PROVIDERS: ATTEND Family Medicine
DX: N20.0 Calculus of kidney (principal); Z90.49 Acquired absence of other specified parts of digestive tract
CPT/HCPCS: 74176